=== PATIENT | female | born 1980 | race Hispanic/Latino ===

== ENCOUNTER 2024-03-02 11:41 | Outpatient (CLI) | payer BC, SELFPAY ==
--- NOTE | ~2024-03-02 | US_ITS ---
EXAMINATION: US OB /maternal detail DATE: 03/02/2024 12:28 INDICATION: anatomic survey. TECHNIQUE: Real-time ultrasound of the pelvis was performed. COMPARISON: None. FINDINGS: There is a single living fetus in vertex presentation. The placenta is anterior. The cervical length is 3.1 cm on transabdominal images, which is normal. heart rate is 140 beats per minute (bpm). The amniotic fluid volume is subjectively normal. The following biometric data were obtained: Biparietal diameter (BPD): 7.9 cm; head circumference (HC): 28.5 cm; abdominal circumference (AC): 26 .2 cm; femur length (FL): 5.4 cm. These measurements are discordant with low FL/BPD. Estimated weight is 1489 g +/- 223 g. As single measurements, these parameters are each equal to the following estimated gestational ages: BPD: 31 weeks 6 days. HC: 31 weeks 2 days. AC: 30 weeks 2 days. FL: 28 weeks 4 days. estimated gestational age based solely on measurements from this exam is 30 weeks 4 days +/- 2 weeks 1 days. The cerebral ventricles, cerebellum, cisterna magna, lip, and visualized portions of the spine are no rmal. The heart is normal. The diaphragm, stomach, kidneys, and bladder are normal. There are two umb ilical arteries to yield a 3-vessel cord. The cord insertion is normal. IMPRESSION: 1. Single living fetus in vertex presentation. 2. Estimated weight is 1489 g +/- 223 g with estimated date of delivery of 05/07/24 based on thi s ultrasound. 3. Discordant biometrics with low FL/BPD ratio. 4. Normal anatomic survey. Reviewed, dictated and finalized at location E. IMPRESSION: 1. Single living fetus in vertex presentation. 2. Estimated weight is 1489 g +/- 223 g with estimated date of delivery of 05/07/24 based on this ultrasound. 3. Discordant biometrics with low FL/BPD ratio. 4. Normal anatomic survey.
== END 2024-03-02 11:42 ==
LOC: MICIMG 11:42
PROVIDERS: PCP Student in an Organized Health Care Education/Training Program; Visit Provider Student in an Organized Health Care Education/Training Program
DX: N94.89 Other specified conditions associated with female genital organs and menstrual cycle (principal); Z34.93 Encounter for supervision of normal pregnancy, unspecified, third trimester; Z3A.30 30 weeks gestation of pregnancy
CPT/HCPCS: 76805

== ENCOUNTER 2024-03-15 11:23 | Outpatient (CLI) | payer BC, SELFPAY ==
[2024-03-15] VITALS (7 sets, daily range): BP systolic 127–145; BP diastolic 74–83; PULSE 106–139; O2SAT 98
[2024-03-15 12:02] LABS: Basophils Percent Auto 0.5 % (0.2-1.2); Eosinophils Percent Auto 0.7 % (0-4.4); Hematocrit 38.3 % (37.0-47.0); Immature Granulocyte Absolute 0.02 K/mm3 (0.00-0.031); Immature Granulocyte Percent A 0.3 % (0-0.5); Lymphocytes Absolute Auto 1.07 K/mm3 (0.9-3.2); Lymphocytes Percent Auto 18.3 % (18.3-44.2); Mean Corpuscular HGB Conc 33.9 g/dl (32-36); Mean Corpuscular Hemoglobin 31.8 pg (26-34); Mean Corpuscular Volume 93.6 fl (80-100); Mean Platelet Volume 10.3 fl (7.4-10.4); Monocytes Absolute Auto 0.4 K/mm3 (0.1-0.6); Neutrophils Absolute Auto 4.3 K/mm3 (1.3-6.7); Neutrophils Percent Auto 73.2 % (45.5-73.1); Platelet Count Result 251 k/mm3 (150-375); Red Blood Count 4.09 M/mm3 (4.2-5.4); Red Cell Distribution Width 13.4 % (11.5-14.5); White Blood Count 5.9 K/mm3 (4.5-10.0)
[2024-03-15 12:03] LABS: Appearance Urine Clear (Clear); Bilirubin Urine Negative (Negative); Blood Urine Negative (Negative); Color Urine Yellow (Yellow); Glucose Urine UA Negative (Negative); Ketones Urine 3+ mg/dL (Negative); Leukocyte Esterase Ur Negative LEU/UL (Negative); Nitrate Urine Negative (Negative); Protein Urine Negative (Negative); Specific Grav Ur 1.009 (1.001-1.035); Urobilinogen Urine 0.2 mg/dL (<2.0); pH Urine 7.5 (5.0-9.0)
[2024-03-15 12:11] LABS: Creatinine Urine 33.3 mg/dL; Total Protein Urine Random 14 mg/dL; Ur Ttl Prot Creatinine Ratio 0.42 mg/mg (0-0.20)
[2024-03-15 12:12] LABS: Add Urine Microscopic? YES
[2024-03-15 12:15] LABS: Alanine Aminotransferase 15 U/L (6-35); Albumin Level 4.1 g/dL (3.5-5.1); Alkaline Phosphatase 133 U/L (38-126); Anion Gap 10 mmol/L (4-12); Aspartate Amino Transferase 29 U/L (14-36); Bilirubin,Total 0.4 mg/dL (0.2-1.3); Blood Urea Nitrogen 4 mg/dL (7-17); Calcium 8.9 mg/dL (8.4-10.2); Carbon Dioxide 20 mmol/L (22-30); Chloride 107 mmol/L (98-107); Estimated Glomerular Filt Rate > 60; Glucose 82 mg/dL (65-110); Potassium 3.7 mmol/L (3.4-5.0); Sodium 137 mmol/L (137-145); Uric Acid 3.2 mg/dL (2.5-7.5)
[2024-03-15 12:55] LABS: HIV 1/2 Ab P24 Ag Result Negative (Negative)
[2024-03-15 13:27] LABS: Glucose 1 Hour PP 50gm Dose 179 mg/dL
[2024-03-15 20:36] LABS: Rapid Plasma Reagin Non-Reactive (NonReactive)
== END 2024-03-15 15:55 | disposition home or self-care (01) ==
LOC: ANHOBOP 11:31 → ANHOBPP 11:33
PROVIDERS: Visit Provider Obstetrics & Gynecology
DX: O13.9 Gestational [pregnancy-induced] hypertension without significant proteinuria, unspecified trimester (principal); Z3A.00 Weeks of gestation of pregnancy not specified
CPT/HCPCS: 36415; 59025; 80053; 81001; 82570; 82947; 84156; 84550; 85025; 86592; 86703; 99199; G0432

== ENCOUNTER 2024-03-20 17:46 | Observation (INO) | payer BC, SELFPAY ==
--- NOTE | ~2024-03-20 | US_ITS ---
LIMITED OBSTETRIC ULTRASOUND/BIOPHYSICAL PROFILE Ordering provider: Niurka Hull MD History: . Pre E, AMA; add ROMY please . Comparison: None. FINDINGS: MATERNAL CERVIX: Not visualized. cm which is normal (normal is equal to or greater than 3.0 cm). PRESENTATION: Vertex. Longitudinal lie. PLACENTAL LOCATION: Anterior No previa. HEART RATE: 145 bpm (normal is between 110 to 160 bpm). AMNIOTIC FLUID INDEX: 12.6 cm. 5th percentile 8.3 cm. 95th percentile 24.5 cm. Largest vertical pock et is 5.4 cm. SCORE: breathing movements: 2 movements: 2 tone: 2 Amniotic fluid volume: 2 Total: 8 IMPRESSION: Normal biophysical profile. Reviewed, dictated and finalized at location A. IMPRESSION: Normal biophysical profile.
[2024-03-20 17:09] LABS: Alanine Aminotransferase 13 U/L (6-35); Albumin Level 4.2 g/dL (3.5-5.1); Alkaline Phosphatase 147 U/L (38-126); Anion Gap 10 mmol/L (4-12); Aspartate Amino Transferase 21 U/L (14-36); Bilirubin,Total 0.6 mg/dL (0.2-1.3); Blood Urea Nitrogen 2 mg/dL (7-17); Calcium 9.1 mg/dL (8.4-10.2); Carbon Dioxide 19 mmol/L (22-30); Chloride 106 mmol/L (98-107); Estimated Glomerular Filt Rate > 60; Glucose 78 mg/dL (65-110); Potassium 3.6 mmol/L (3.4-5.0); Sodium 135 mmol/L (137-145)
[2024-03-20 17:13] LABS: Basophils Percent Auto 0.4 % (0.2-1.2); Eosinophils Absolute Auto 0.1 K/mm3 (0-0.3); Eosinophils Percent Auto 0.7 % (0-4.4); Hematocrit 39.2 % (37.0-47.0); Hemoglobin 13.2 g/dL (12.0-15.0); Immature Granulocyte Absolute 0.03 K/mm3 (0.00-0.031); Immature Granulocyte Percent A 0.4 % (0-0.5); Lymphocytes Absolute Auto 1.41 K/mm3 (0.9-3.2); Lymphocytes Percent Auto 20.3 % (18.3-44.2); Mean Corpuscular HGB Conc 33.7 g/dl (32-36); Mean Corpuscular Hemoglobin 31.9 pg (26-34); Mean Corpuscular Volume 94.7 fl (80-100); Mean Platelet Volume 10.3 fl (7.4-10.4); Monocytes Absolute Auto 0.5 K/mm3 (0.1-0.6); Monocytes Percent Auto 7.5 % (2.6-8.5); Neutrophils Absolute Auto 4.9 K/mm3 (1.3-6.7); Neutrophils Percent Auto 70.7 % (45.5-73.1); Platelet Count Result 258 k/mm3 (150-375); Red Blood Count 4.14 M/mm3 (4.2-5.4); Red Cell Distribution Width 13.2 % (11.5-14.5); White Blood Count 6.9 K/mm3 (4.5-10.0)
[2024-03-20] MEDS: TERBUTALINE SULFATE 1 MG/ML VIAL (17:15)
--- NOTE | 2024-03-20 17:48 | OBADM ---
This patient, Evelyn Casey, admitted to the OB room for observation. Patient/family oriented to hospital policies and general routines including ID bracelet, bed and alarms, visiting hours, pain management, procedures, bathroom and other care routines, personal items, smoking policy, room service/diet, and visiting hours. Patient/Family are encouraged to report perceived risks to care and to ask questions if they do not understand what they are told or what they should do.
[2024-03-20 17:57] VITALS: BP 128/81; PULSE 94
[2024-03-20 18:03] LABS: Appearance Urine Clear (Clear); Bacteria Urine None Seen /hpf; Bilirubin Urine Negative (Negative); Blood Urine Negative (Negative); Color Urine Yellow (Yellow); Glucose Urine UA Negative (Negative); Ketones Urine 2+ mg/dL (Negative); Leukocyte Esterase Ur Trace LEU/UL (Negative); Nitrate Urine Negative (Negative); Non Pathogenic Casts 0-2; Protein Urine Negative (Negative); RBC Urine 0-2 /hpf (0-2); Specific Grav Ur 1.005 (1.001-1.035); Squamous Epithelial Cell Urine None Seen /hpf (Few); Urobilinogen Urine 0.2 mg/dL (<2.0); WBC Urine 0-5 /hpf (0-3); pH Urine 6.5 (5.0-9.0)
[2024-03-20 18:05] LABS: Add Urine Microscopic? YES; Creatinine Urine 17.6 mg/dL; Total Protein Urine Random 17 mg/dL; Ur Ttl Prot Creatinine Ratio 0.97 mg/mg (0-0.20)
--- NOTE | 2024-03-21 07:56 | P.PNOB_ITS ---
OB - Triage/Final Diagnosis Visit Information Comments/Additional reasons for admission: I have assessed the risk for this patient, Evelyn Casey, and determined that she would benefit from observation care. Evaluation Laboratory results: Laboratory Tests 03/20/24 16:41 WBC 6.9 RBC 4.14 L Hgb 13.2 Hct 39.2 MCV 94.7 MCH 31.9 MCHC 33.7 RDW 13.2 Plt Count 258 MPV 10.3 Immature Gran % (Auto) 0.4 Neut % (Auto) 70.7 Lymph % (Auto) 20.3 [place] % (Auto) 7.5 Eos % (Auto) 0.7 Baso % (Auto) 0.4 Lymph # (Auto) 1.41 [place] # (Auto) 0.5 Eos # (Auto) 0.1 Baso # (Auto) 0.0 Abs Immat Gran (auto) 0.03 Absolute Neuts (auto) 4.9 Absolute Nucleated RBC 0.000 Nucleated RBC % 0.0 Sodium 135 L Potassium 3.6 Chloride 106 Carbon Dioxide 19 L Anion Gap 10 BUN 2 L Creatinine 0.30 L Estim Creat Clear Calc Not Reportable Estimated GFR > 60 Glucose 78 Uric Acid 3.0 Calcium 9.1 Total Bilirubin 0.6 AST 21 ALT 13 Alkaline Phosphatase 147 H Total Protein 8.0 Albumin 4.2 Urine Color Yellow Urine Appearance Clear Urine pH 6.5 Ur Specific [place] 1.005 Urine Protein Negative Urine Glucose (UA) Negative Urine Ketones 2+ H Ur Blood (Man) Negative Urine Nitrate Negative Urine Bilirubin Negative Urine Urobilinogen 0.2 Leukocyte Esterase Rfl Trace H Urine RBC 0-2 Urine WBC 0-5 Ur Squamous Epith Cells None seen Urine Bacteria None seen Urine Casts 0-2 U Random Total Protein 17 Urine Creatinine 17.6 Protein/Creat Ratio 2 0.97 H Vital signs: Vital Signs - 24 hr 03/20/24 17:57 Pulse Rate 94 Blood Pressure [Left Arm] 128/81 Final Diagnosis (1) contractions: Code(s): O47.00 - False labor before 37 completed weeks of gestation, unspecified trimester Status: Acute (2) Pre-eclampsia: Code(s): O14.90 - Unspecified pre-eclampsia, unspecified trimester Status: Acute
== END 2024-03-20 18:16 ==
LOC: ANHLDR 03-21 07:23
PROVIDERS: Admitting Provider Obstetrics & Gynecology; Visit Provider Obstetrics & Gynecology
DX: O14.93 Unspecified pre-eclampsia, third trimester (principal); O47.03 False labor before 37 completed weeks of gestation, third trimester; Z3A.33 33 weeks gestation of pregnancy
CPT/HCPCS: 36415; 59025; 76815; 76819; 80053; 81001; 82570; 84156; 84550; 85025; 96372; G0378; G0379; J3105

== ENCOUNTER 2024-04-13 14:24 | Outpatient (RCR) | payer BC, SELFPAY ==
[2024-03-23 15:17] VITALS: BP 131/81; PULSE 124
[2024-03-27 16:53] VITALS: BP 134/84; PULSE 109
[2024-03-30 14:44] LABS: Basophils Percent Auto 0.4 % (0.2-1.2); Eosinophils Absolute Auto 0.1 K/mm3 (0-0.3); Eosinophils Percent Auto 1.5 % (0-4.4); Hematocrit 40.3 % (37.0-47.0); Hemoglobin 13.6 g/dL (12.0-15.0); Immature Granulocyte Absolute 0.03 K/mm3 (0.00-0.031); Immature Granulocyte Percent A 0.6 % (0-0.5); Lymphocytes Absolute Auto 1.25 K/mm3 (0.9-3.2); Lymphocytes Percent Auto 23.6 % (18.3-44.2); Mean Corpuscular HGB Conc 33.7 g/dl (32-36); Mean Corpuscular Hemoglobin 31.9 pg (26-34); Mean Corpuscular Volume 94.6 fl (80-100); Mean Platelet Volume 10.5 fl (7.4-10.4); Monocytes Absolute Auto 0.5 K/mm3 (0.1-0.6); Neutrophils Absolute Auto 3.4 K/mm3 (1.3-6.7); Neutrophils Percent Auto 63.9 % (45.5-73.1); Platelet Count Result 254 k/mm3 (150-375); Red Blood Count 4.26 M/mm3 (4.2-5.4); White Blood Count 5.3 K/mm3 (4.5-10.0)
[2024-03-30 15:00] LABS: Alanine Aminotransferase 17 U/L (6-35); Alkaline Phosphatase 160 U/L (38-126); Anion Gap 11 mmol/L (4-12); Aspartate Amino Transferase 22 U/L (14-36); Bilirubin,Total 0.3 mg/dL (0.2-1.3); Blood Urea Nitrogen 5 mg/dL (7-17); Calcium 8.7 mg/dL (8.4-10.2); Carbon Dioxide 19 mmol/L (22-30); Chloride 102 mmol/L (98-107); Estimated Glomerular Filt Rate > 60; Glucose 81 mg/dL (65-110); Sodium 132 mmol/L (137-145); Uric Acid 3.2 mg/dL (2.5-7.5)
[2024-03-30 15:12] VITALS: BP 127/84; PULSE 107
[2024-04-06 14:48] VITALS: BP 129/85; PULSE 101
[2024-04-06 15:01] LABS: Basophils Percent Auto 0.3 % (0.2-1.2); Eosinophils Percent Auto 0.7 % (0-4.4); Hematocrit 38.9 % (37.0-47.0); Hemoglobin 13.1 g/dL (12.0-15.0); Immature Granulocyte Absolute 0.03 K/mm3 (0.00-0.031); Immature Granulocyte Percent A 0.5 % (0-0.5); Lymphocytes Absolute Auto 1.08 K/mm3 (0.9-3.2); Lymphocytes Percent Auto 18.1 % (18.3-44.2); Mean Corpuscular HGB Conc 33.7 g/dl (32-36); Mean Corpuscular Hemoglobin 32.1 pg (26-34); Mean Corpuscular Volume 95.3 fl (80-100); Mean Platelet Volume 10.6 fl (7.4-10.4); Monocytes Absolute Auto 0.4 K/mm3 (0.1-0.6); Monocytes Percent Auto 7.2 % (2.6-8.5); Neutrophils Absolute Auto 4.4 K/mm3 (1.3-6.7); Neutrophils Percent Auto 73.2 % (45.5-73.1); Platelet Count Result 224 k/mm3 (150-375); Red Blood Count 4.08 M/mm3 (4.2-5.4); Red Cell Distribution Width 13.2 % (11.5-14.5)
[2024-04-06 15:13] LABS: Alanine Aminotransferase 14 U/L (6-35); Albumin Level 3.9 g/dL (3.5-5.1); Alkaline Phosphatase 165 U/L (38-126); Anion Gap 9 mmol/L (4-12); Aspartate Amino Transferase 20 U/L (14-36); Bilirubin,Total 0.4 mg/dL (0.2-1.3); Blood Urea Nitrogen 9 mg/dL (7-17); Calcium 8.6 mg/dL (8.4-10.2); Carbon Dioxide 22 mmol/L (22-30); Chloride 103 mmol/L (98-107); Estimated Glomerular Filt Rate > 60; Glucose 83 mg/dL (65-110); Potassium 3.6 mmol/L (3.4-5.0); Sodium 134 mmol/L (137-145)
[2024-04-10 16:52] VITALS: BP 141/79; PULSE 96
--- NOTE | ~2024-04-13 | US_ITS ---
EXAMINATION: US OB BPP wo non-stress DATE: 03/27/2024 16:42 CDT INDICATION: Preeclampsia TECHNIQUE: Real-time transabdominal obstetric ultrasound. FINDINGS: No prior studies for comparison. There is a single living fetus in vertex presentation. The placenta is maternal right without placen ta previa. cardiac activity and movement is noted with a heart rate of 145 beats per minute. Biophysical profile: breathin of 2 movement: 2 of 2 tone: 2 of 2 Amniotic flud pocket: 2 of 2 Total score: 8 of 8 IMPRESSION: 1. Single living intrauterine in vertex presentation. 2: Total biophysical profile score of 8/8. Reviewed, dictated and finalized at location B.
--- NOTE | ~2024-04-13 | US_ITS ---
EXAMINATION: US OB BPP wo non-stress DATE: 04/10/2024 16:51 INDICATION: Gestational hypertension. Third trimester. TECHNIQUE: Real-time pelvic ultrasound was performed. COMPARISON: Ultrasound 03/27/2024 FINDINGS: There is a single living fetus in vertex presentation. The placenta is right anterior. heart r ate is 136 beats per minute (bpm). Biophysical profile performed by the technologist: breathing (30 sec sustained breathing in 30 minutes): 2 out of 2 movement (3 gross body movements in 30 minutes): 2 out of 2 tone (one episode of qximuiw-jqpxgnfjz-mwgvuwo limb movement): 2 out of 2 Amniotic fluid pocket (2 cm): 2 out of 2 Total score: 8 out of 8 IMPRESSION: 1. Single living fetus in vertex presentation. 2. Biophysical profile 8 out of 8. Reviewed, dictated and finalized at location A.
[2024-04-13 14:45] LABS: Basophils Percent Auto 0.5 % (0.2-1.2); Eosinophils Absolute Auto 0.1 K/mm3 (0-0.3); Eosinophils Percent Auto 1.3 % (0-4.4); Hematocrit 37.8 % (37.0-47.0); Hemoglobin 12.9 g/dL (12.0-15.0); Immature Granulocyte Absolute 0.03 K/mm3 (0.00-0.031); Immature Granulocyte Percent A 0.5 % (0-0.5); Lymphocytes Absolute Auto 1.23 K/mm3 (0.9-3.2); Lymphocytes Percent Auto 19.2 % (18.3-44.2); Mean Corpuscular HGB Conc 34.1 g/dl (32-36); Mean Corpuscular Volume 93.8 fl (80-100); Mean Platelet Volume 10.2 fl (7.4-10.4); Monocytes Absolute Auto 0.5 K/mm3 (0.1-0.6); Monocytes Percent Auto 7.8 % (2.6-8.5); Neutrophils Absolute Auto 4.5 K/mm3 (1.3-6.7); Neutrophils Percent Auto 70.7 % (45.5-73.1); Platelet Count Result 225 k/mm3 (150-375); Red Blood Count 4.03 M/mm3 (4.2-5.4); Red Cell Distribution Width 13.2 % (11.5-14.5); White Blood Count 6.4 K/mm3 (4.5-10.0)
[2024-04-13 14:58] LABS: Alanine Aminotransferase 12 U/L (6-35); Albumin Level 3.6 g/dL (3.5-5.1); Alkaline Phosphatase 182 U/L (38-126); Anion Gap 9 mmol/L (4-12); Aspartate Amino Transferase 19 U/L (14-36); Bilirubin,Total 0.3 mg/dL (0.2-1.3); Blood Urea Nitrogen 6 mg/dL (7-17); Calcium 8.9 mg/dL (8.4-10.2); Carbon Dioxide 21 mmol/L (22-30); Chloride 104 mmol/L (98-107); Estimated Glomerular Filt Rate > 60; Glucose 81 mg/dL (65-110); Potassium 3.7 mmol/L (3.4-5.0); Sodium 134 mmol/L (137-145); Uric Acid 3.2 mg/dL (2.5-7.5)
[2024-04-13 15:13] VITALS: BP 129/85; PULSE 100
== END 2024-04-29 10:53 | disposition home or self-care (01) ==
LOC: ANHOBOP 14:24
PROVIDERS: Visit Provider Obstetrics & Gynecology
DX: O14.93 Unspecified pre-eclampsia, third trimester (principal); Z3A.33 33 weeks gestation of pregnancy; Z3A.34 34 weeks gestation of pregnancy; Z3A.35 35 weeks gestation of pregnancy; Z3A.36 36 weeks gestation of pregnancy
CPT/HCPCS: 36415; 59025; 76819; 80053; 84550; 85025

== ENCOUNTER 2024-04-16 15:56 | Inpatient (IN) | payer BC, SELFPAY ==
[2024-04-16] VITALS (18 sets, daily range): BP systolic 119–151; BP diastolic 68–93; PULSE 88–134; TEMP 37.1; BMI 25.4
[2024-04-16 16:34] LABS: Basophils Percent Auto 0.2 % (0.2-1.2); Eosinophils Percent Auto 0.6 % (0-4.4); Hematocrit 39.2 % (37.0-47.0); Hemoglobin 13.6 g/dL (12.0-15.0); Immature Granulocyte Absolute 0.02 K/mm3 (0.00-0.031); Immature Granulocyte Percent A 0.3 % (0-0.5); Lymphocytes Absolute Auto 1.06 K/mm3 (0.9-3.2); Lymphocytes Percent Auto 16.2 % (18.3-44.2); Mean Corpuscular HGB Conc 34.7 g/dl (32-36); Mean Corpuscular Hemoglobin 32.2 pg (26-34); Mean Corpuscular Volume 92.9 fl (80-100); Mean Platelet Volume 10.4 fl (7.4-10.4); Monocytes Absolute Auto 0.5 K/mm3 (0.1-0.6); Monocytes Percent Auto 7.2 % (2.6-8.5); Neutrophils Percent Auto 75.5 % (45.5-73.1); Platelet Count Result 240 k/mm3 (150-375); Red Blood Count 4.22 M/mm3 (4.2-5.4); White Blood Count 6.6 K/mm3 (4.5-10.0)
[2024-04-16 16:48] LABS: Alanine Aminotransferase 12 U/L (6-35); Albumin Level 3.8 g/dL (3.5-5.1); Alkaline Phosphatase 207 U/L (38-126); Anion Gap 9 mmol/L (4-12); Aspartate Amino Transferase 21 U/L (14-36); Bilirubin,Total 0.4 mg/dL (0.2-1.3); Blood Urea Nitrogen 6 mg/dL (7-17); Calcium 9.1 mg/dL (8.4-10.2); Carbon Dioxide 20 mmol/L (22-30); Chloride 106 mmol/L (98-107); Estimated Glomerular Filt Rate > 60; Glucose 110 mg/dL (65-110); Potassium 3.5 mmol/L (3.4-5.0); Sodium 135 mmol/L (137-145); Uric Acid 3.7 mg/dL (2.5-7.5)
--- NOTE | 2024-04-16 16:50 | LDADM ---
This patient, Evelyn Casey, was admitted to Labor/Delivery/Recovery 107 on 04/16/24 at 15:56. Plans for labor, pain management and were discussed with patient. Patient/family oriented to hospital policies and general routines including ID bracelet, bed and alarms, visiting hours, pain management, procedures, bathroom and other care routines, personal items, smoking policy, room service/diet and guest tray routines, security routines, and visiting hours. Patient/Family are encouraged to report perceived risks to care and to ask questions if they do not understand what they are told or what they should do. See OBIX for further documentation.
[2024-04-16] MEDS: DINOPROSTONE 10 MG VAG INSERT VAGINAL (17:02)
[2024-04-16 17:04] LABS: Rapid Plasma Reagin Non-Reactive (NonReactive)
[2024-04-16 17:29] LABS: HIV 1/2 Ab P24 Ag Result Negative (Negative)
--- NOTE | 2024-04-16 18:11 | WPDANESEPP ---
Anes - Eval Pre Procedure Procedure: labor epidural Date/Time: 04/16/24 18:11 Surgeon: naun Preop Diagnosis: pain during labor Pre Op Diagnosis: IOL Patient Data Age: 43 Gender: F Height: 1.52 m Weight: 59 kg Last Vital Signs Pulse 104 H 04/16/24 18:01 BP 124/79 04/16/24 18:01 O2 Del Method Room Air 04/16/24 16:48 Allergies Allergy/AdvReac Type Severity Reaction Status Date / Time No Known Allergies Allergy Verified 04/02/24 15:12 Home Medications Medication Instructions Recorded Confirmed Type vits no.126-ferrous fum 1 tablet PO DAILY 02/15/24 04/16/24 History 28 mg iron-folic acid 800 mcg tablet (Classic ) Laboratory Tests 04/16/24 16:13 WBC 6.6 K/mm3 (4.5-10.0) RBC 4.22 M/mm3 (4.2-5.4) Hgb 13.6 g/dL (12.0-15.0) Hct 39.2 % (37.0-47.0) MCV 92.9 fl (80-100) MCH 32.2 pg (26-34) MCHC 34.7 g/dl (32-36) RDW 13.0 % (11.5-14.5) Plt Count 240 k/mm3 (150-375) MPV 10.4 fl (7.4-10.4) Immature Gran % (Auto) 0.3 % (0-0.5) Neut % (Auto) 75.5 H % (45.5-73.1) Lymph % (Auto) 16.2 L % (18.3-44.2) [place] % (Auto) 7.2 % (2.6-8.5) Eos % (Auto) 0.6 % (0-4.4) Baso % (Auto) 0.2 % (0.2-1.2) Lymph # (Auto) 1.06 K/mm3 (0.9-3.2) [place] # (Auto) 0.5 K/mm3 (0.1-0.6) Eos # (Auto) 0.0 K/mm3 (0-0.3) Baso # (Auto) 0.0 K/mm3 (0.0-0.1) Abs Immat Gran (auto) 0.02 K/mm3 (0.00-0.031) Absolute Neuts (auto) 5.0 K/mm3 (1.3-6.7) Absolute Nucleated RBC 0.000 K/mm3 (0.0-0.012) Nucleated RBC % 0.0 % (0.0-0.2) Sodium 135 L mmol/L (137-145) Potassium 3.5 mmol/L (3.4-5.0) Chloride 106 mmol/L (98-107) Carbon Dioxide 20 L mmol/L (22-30) Anion Gap 9 mmol/L (4-12) BUN 6 L mg/dL (7-17) Creatinine 0.30 L mg/dL (0.7-1.0) Estim Creat Clear Calc Not Reportable Estimated GFR > 60 (59 - ) Glucose 110 mg/dL (65-110) Uric Acid 3.7 mg/dL (2.5-7.5) Calcium 9.1 mg/dL (8.4-10.2) Total Bilirubin 0.4 mg/dL (0.2-1.3) AST 21 U/L (14-36) ALT 12 U/L (6-35) Alkaline Phosphatase 207 H U/L (38-126) Total Protein 7.0 g/dL (6.3-8.2) Albumin 3.8 g/dL (3.5-5.1) RPR Non-reactive (NonReactive) HIV 1&2 Ab/P24 Ag 4thGn Negative (Negative) Blood Type O Positive Antibody Screen Negative Patient hx anesthesia problems: none Family hx anesthesia problems: none Results Review: All pre-operative results and documents have been reviewed as part of the pre-operative evaluation. [facility] Past Medical History Medical History (Updated 04/16/24 @ 18:11 by Trena Lay CRNA) Abnormal glucose tolerance in HTN (hypertension) IUP (intrauterine ), incidental Overweight Suppression of menses Family History Family History Father Hypertension Acute myocardial infarction Other Heart disease Social History Social History Smoking status: Never smoker Alcohol intake: former Substance use: never Do You Feel Safe in your Home?: Yes Lack of Transportation: No Lack of Food: Never True Current Housing: I Have Housing Concerned About Future Housing: No Difficulty Paying Gas/Electric Bills: No Difficulty Paying for Meds: No Currently Unemployed: No Education: Bachelor's Degree Difficulty w/ Childcare or Family Care: No Living arrangements: with family Occupation/Education: unemployed Gender identity (if verbalized by the patient): Female Spiritual care concerns: No Exam Day of Procedure 04/16/24 18:11
[2024-04-16] MEDS: ACETAMINOPHEN 500 MG TABLET 1000 MG PO (22:33)
[2024-04-16] MEDS: LACTATED RINGERS 1,000 ML 125 ML IV CONT (22:49)
[2024-04-17] VITALS (121 sets, daily range): BP systolic 110–171; BP diastolic 48–125; PULSE 80–161; RESP 12–16; TEMP 36.6–38.3; O2SAT 94–100
--- NOTE | 2024-04-17 06:54 | PM.IMHP ---
H&P: HPI History of Present Illness Date/Time: 04/17/24 07:10 Chief Complaint: Induction for pre-eclampsia without severe features Narrative: Evelyn is a 43yo @ 37.1wks who was admitted to L&D overnight for IOL due to pre-eclampsia w/o severe features, now s/p cervidil. She has been undergoing twice weekly testing with weekly BPP and weekly labs since her diagnosis. She also did see MFM. She established PNC very late at 28wks. She denies any SHAH, vision changes, CP, SOB. She feels good movement. No VB or LOF. Her is complicated by: - Late to PNC @ 28wks - AMA-- had MFM US; anatomy incomplete with them, no genetic testing performed - Pre-eclampsia w/o SF (P/C 0.9) --- 2x/wk for ANT, delivery @ 37wks. - Elevated 1 hour; 3 hour normal - Pt desires bilateral salpingectomy if needed. Review of Systems Constitutional: Constitutional: Denies chills, Denies fever(s) and Denies headache(s) Eyes: Eyes: Denies change in vision ENT: Denies headache(s) Cardiovascular: Cardiovascular: Denies chest pain and Denies dyspnea Respiratory: Respiratory: Denies dyspnea Genitourinary: Genitourinary: Denies abnormal vaginal bleeding and Denies vaginal discharge Neurologic: Denies headache(s) Psychiatric: Psychiatric: Denies anxiety and Denies depression [facility] Past Medical History Medical History (Updated 04/16/24 @ 20:59 by Niurka Hull MD) Abnormal glucose tolerance in HTN (hypertension) IUP (intrauterine ), incidental Overweight Suppression of menses Family History Family History Father Hypertension Acute myocardial infarction Other Heart disease Social History Social History Smoking status: Never smoker Alcohol intake: former Substance use: never Do You Feel Safe in your Home?: Yes Lack of Transportation: No Lack of Food: Never True Current Housing: I Have Housing Concerned About Future Housing: No Difficulty Paying Gas/Electric Bills: No Difficulty Paying for Meds: No Currently Unemployed: No Education: Bachelor's Degree Difficulty w/ Childcare or Family Care: No Living arrangements: with family Occupation/Education: unemployed Gender identity (if verbalized by the patient): Female Spiritual care concerns: No Meds Home Medications and Allergies Home Medications Medication Instructions Recorded Confirmed Type vits no.126-ferrous fum 1 tablet PO DAILY 02/15/24 04/16/24 History 28 mg iron-folic acid 800 mcg tablet (Classic ) Allergies Allergy/AdvReac Type Severity Reaction Status Date / Time No Known Allergies Allergy Verified 04/02/24 15:12 Vital Signs Vital Signs - 24 hr 04/16/24 16:19 04/16/24 16:31 04/16/24 16:46 Pulse Rate 134 H 130 H 115 H Blood Pressure 142/91 H 131/87 144/88 H Oxygen Delivery 04/16/24 17:01 04/16/24 17:16 04/16/24 17:31 Pulse Rate 118 H 114 H 106 H Blood Pressure 137/93 H 120/78 124/80 Oxygen Delivery 04/16/24 17:46 04/16/24 18:01 04/16/24 18:16 Pulse Rate 109 H 104 H 108 H Blood Pressure 129/81 124/79 123/77 Oxygen Delivery 04/16/24 18:31 04/16/24 19:01 04/16/24 20:01 Pulse Rate 93 91 94 Blood Pressure 119/77 127/68 126/76 Oxygen Delivery 04/16/24 20:31 04/16/24 16:48 Pulse Rate 105 H Blood Pressure 144/93 H Oxygen Delivery Room Air Exam Const: General: cooperative, healthy appearing, comfortable and no acute distress Nutritional Appearance: obese Orientation/consciousness: patient oriented x3 Resp: Effort & Inspection: normal respiratory effort Cardio: Rate: regular rate GI: GI Palp: No abdominal tenderness : Other: FHT's: 130's/ mod dmitriy/ + accels/ no decels - cat 1 TOCO: ctxs q2-4min Cervix: 4/50/-2 Membranes: AROM, clear Presentation: cephalic Skin: Genera
[2024-04-17] MEDS: OXYTOCIN 30 UNITS/NS 500 ML 30 UNITS/500 ML BAG 6 UNITS IV CONT (07:00)
[2024-04-17] MEDS: LACTATED RINGERS 1,000 ML 125 ML IV CONT ×2 (07:30→11:46)
[2024-04-17] MEDS: miSOPROStol 200 MCG TABLET 800 MCG RECTAL (13:10)
--- NOTE | 2024-04-17 13:33 | PM.OBPRVD ---
OB - Vaginal Delivery Note Procedure Delivery date: 04/17/24 Events: Preeclampsia w/o severe features and Other (AMA, late care) Intrapartal Events: Chorioamnionitis Induction method: Per Cervidil Protocol Delivery augmentation: Rupture of Membranes and Pitocin Delivery monitor: External FHT and External Uterine Route of delivery: Episiotomy description: None Laceration Description: Periurethral (left) and Perineal - 2nd Degree Delivery repair: vicryl Specimen: Yes (placenta) Quantitative Blood Loss (ml): 500 Anesthesia type: Epidural Disposition: Floor Complications: No immediate complications [place] Baby Date of : 04/17/24 Time of : 13:07 Gestational Age by Date: 37 (.1) Infant gender: Female Weight (pounds): 5 Weight (ounces): 11 presentation: vertex position: Right Occiput Anterior Placenta delivery description: Expressed Cord Vessel Description: 3 Vessels and Delayed Cord Clamping score one minute: 9 score five minutes: 9 Narrative: Evelyn rapidly progressed to complete dilation with strong desire to push. Prior to pushing she was found to have a temperature of 100.4? and the baby was also found to be tachycardiac. She pushed for approximately 15 minutes with good maternal effort delivered the head over intact perineum. No nuchal cord was noted. She easily delivered the infant's shoulders and body without complication. The was immediately placed skin to skin and had spontaneous cry. Delayed cord clamping was performed. The umbilical cord was then doubly clamped and cut. A segment of cord was collected for cord gases. Brisk bleeding was then noted but cord blood was collected for typing. With Pitocin running and gentle downward traction on the cord, the placenta delivered without complication. Bimanual massage revealed uterine atony and Cytotec 800 mcg was placed rectally. The uterus did become firm with bimanual massage. She was examined and found to have a left periurethral laceration as well as a second-degree perineal laceration. The left periurethral laceration was repaired using 3-0 Vicryl in the normal fashion and good hemostasis was noted. The second-degree perineal laceration was repaired in normal fashion using 2-0 Vicryl and good hemostasis was noted bimanual massage was once again performed and a small amount of clots were removed from the uterus but good tone was then noted with minimal bleeding. Sponge, lap, instrument, and needle counts were correct at the end of the procedure. Mom and baby were left bonding in the birthing suite in stable condition.
[2024-04-17] MEDS: AMPICILLIN 2 GM/NS 100 ML 2 GM/100 ML BAG IVPB ×2 (13:43→20:03)
[2024-04-17] MEDS: OXYTOCIN 30 UNITS/NS 500 ML 30 UNITS/500 ML BAG 125 UNITS IV CONT (13:47)
[2024-04-17] MEDS: IBUPROFEN 600 MG TABLET PO (15:22)
[2024-04-17] MEDS: WITCH HAZEL 40 PADS 1 PAD TOPICAL (15:24)
[2024-04-17] MEDS: BENZOCAINE 20% AER SPR (*SP) 56 GM CAN 1 SPRAY TOPICAL (15:24)
[2024-04-17] MEDS: ACETAMINOPHEN 325 MG TABLET 650 MG PO (17:54)
--- NOTE | 2024-04-17 17:59 | OBPPTRN ---
Patient transferred to post room #285 via (wheelchair ). Support person present. Oriented to unit, room, information board, rooming in, admission packet and security measures. Patient verbalizes understanding.
--- NOTE | 2024-04-17 18:25 | PC.NURSE ---
4405. Met with patient to assess and discuss needs related to feeding. Mother states it is her intention to exclusively breastfeed if she is able, but states she is happy to do what is best for baby. Encouraged mother to breastfeed every 2-3 hours, watching for early feeding cues which we reviewed together.. If infant is sleepy, unwrap and place baby skin to skin. Discussed signs that infant is effectively , i.e. sufficient voids and stools, jaundice within normal limits, <10% weight loss from . Mother educated on milk production, supply and demand, and expectations for in the immediate period. Encouraged feeding on demand and feeding durations of 15 minutes or greater. Discussed breast/nipple care with good hand hygiene, signs of a correct latch, listening for infant swallows and documenting feedings on the feeding sheet. Mother instructed to call for assistance if infant will not feed every 3 hours, if there is discomfort with , or if mother has any other questions or concerns. resources provided including the Mom and Baby Guide. Mother verbalized understanding. Updated patient?s primary RN with education provided.
--- NOTE | 2024-04-17 20:26 | PM.OBDSVD ---
DS: Admitting Diagnosis Discharge Date 04/19/24 Admitting Diagnosis Pre-eclampsia w/o severe features DS: Discharge Diagnosis Discharge Diagnosis (1) Normal vaginal delivery of first : Code(s): O80 - Encounter for full-term uncomplicated delivery Status: Acute (2) Chorioamnionitis: Qualifiers: Fetus number: single or unspecified fetus Trimester: third trimester Qualified Code(s): O41.1230 - Chorioamnionitis, third trimester, not applicable or unspecified Code(s): O41.1290 - Chorioamnionitis, unspecified trimester, not applicable or unspecified Status: Acute (3) Pre-eclampsia: Qualifiers: Trimester: third trimester Qualified Code(s): O14.93 - Unspecified pre-eclampsia, third trimester Code(s): O14.90 - Unspecified pre-eclampsia, unspecified trimester Status: Acute OB - DS: Summary OB Procedures : NST, PIH Mgmt and Ultrasound OB Procedures Intrapartum: Spontaneous Vag Delivery OB Procedures: : Antibiotics Peripartum Data Infant Delivery Method: Natural Vaginal Laceration Description: Periurethral (left) and Perineal - 2nd Degree Episiotomy description: None complications: none 1: Gender: Female Disposition of : home Status at Discharge Functional status at discharge: independent ambulation Overall status at discharge: patient is back to baseline Time Spent with Patient Time attestation: Total time spent providing and/or coordinating discharge services: Exam Const: General: cooperative, healthy appearing, comfortable and no acute distress Orientation/consciousness: patient oriented x3 Resp: Effort & Inspection: normal respiratory effort Auscultation: clear to auscultation bilaterally Cardio: Rate: regular rate GI: Inspection: non-distended GI Palp: No abdominal tenderness and Yes Soft to palpation Auscultation: normal bowel sounds : Other: fundus firm Skin: General skin exam: normal color Neuro: General: patient oriented x3 Extrem: General: normal to inspection Psych: Appearance: grossly normal Affect: normal affect Attitude: cooperative DS: Data Data Completed and Pending Pending studies at discharge: Pending at discharge 04/17/24 14:37 Surgical [PTH] Routine Discharge Plan Discharge Attending physician on discharge: Niurka Hull Discharging Clinician: Niurka Hull Anticipated Discharge Date/Time: 04/19/24 09:00 Patient Disposition: Home, Self-Care Activity: may shower and pelvic rest Diet: regular Discharge Instructions: Education: Mom and Baby Guide Given to: Mother Follow-Up: Call your delivering provider's office for an appointment to be seen in: 1 Week Mom and baby should come to the [facility] for the follow-up appointment. Appointment Date/Time: April 20, 2024 at 11:00 am What to expect at your follow-up visit: Blood Pressure Check Physical Assessment Call [phone] if you are unable to keep your appointment time. BREAST CARE: * Wear a snug supportive bra. * For engorgement discomfort: Breast Feeding/Pumping: * Apply warm moist washcloths * Express milk as needed to relieve engorgement * Wear loose clothing Bottle Feeding: * May apply ice packs * For sore nipples: * Identify correct latch-on/Breast pump flange * Apply warm moist washcloths before and after nursing * Air dry nipples after nursing * May apply Lansinoh cream to nipples EPISIOTOMY/PERINEAL CARE: * Until bleeding stops, use your perlita bottle after urinating * Change your pad frequently throughout the day * You may take sitz baths several times a day (fill your bathtub with warm water and soak for 20 minutes.) Do NOT bathe in the water * No tub baths until seen by your physician - You may shower ACTIVITY: * Rest as much a
[2024-04-18 00:20] VITALS: BP 89/51; PULSE 87; RESP 12; TEMP 36.5; O2SAT 97
[2024-04-18] MEDS: AMPICILLIN 2 GM/NS 100 ML 2 GM/100 ML BAG IVPB ×2 (00:36→06:52)
[2024-04-18] MEDS: SODIUM CHLORIDE 0.9% IV 500 ML 999 ML (01:06)
[2024-04-18 03:40] VITALS: BP 99/64
[2024-04-18] MEDS: IBUPROFEN 600 MG TABLET PO ×2 (05:34→21:38)
[2024-04-18] MEDS: ACETAMINOPHEN 325 MG TABLET 650 MG PO ×2 (05:34→21:37)
[2024-04-18] MEDS: DOCUSATE SODIUM 100 MG CAPSULE PO ×2 (05:35→16:25)
[2024-04-18 05:40] LABS: Basophils Absolute Auto 0.1 K/mm3 (0.0-0.1); Basophils Percent Auto 0.4 % (0.2-1.2); Eosinophils Absolute Auto 0.1 K/mm3 (0-0.3); Eosinophils Percent Auto 0.9 % (0-4.4); Hematocrit 29.1 % (37.0-47.0); Hemoglobin 9.9 g/dL (12.0-15.0); Immature Granulocyte Absolute 0.06 K/mm3 (0.00-0.031); Immature Granulocyte Percent A 0.4 % (0-0.5); Lymphocytes Absolute Auto 1.98 K/mm3 (0.9-3.2); Lymphocytes Percent Auto 14.2 % (18.3-44.2); Mean Corpuscular Hemoglobin 32.5 pg (26-34); Mean Corpuscular Volume 95.4 fl (80-100); Mean Platelet Volume 10.6 fl (7.4-10.4); Monocytes Absolute Auto 1.2 K/mm3 (0.1-0.6); Monocytes Percent Auto 8.6 % (2.6-8.5); Neutrophils Absolute Auto 10.5 K/mm3 (1.3-6.7); Neutrophils Percent Auto 75.5 % (45.5-73.1); Platelet Count Result 184 k/mm3 (150-375); Red Blood Count 3.05 M/mm3 (4.2-5.4); Red Cell Distribution Width 13.2 % (11.5-14.5); White Blood Count 13.9 K/mm3 (4.5-10.0)
[2024-04-18 05:52] LABS: Alanine Aminotransferase 11 U/L (6-35); Albumin Level 2.3 g/dL (3.5-5.1); Alkaline Phosphatase 126 U/L (38-126); Anion Gap 7 mmol/L (4-12); Aspartate Amino Transferase 25 U/L (14-36); Bilirubin,Total 0.2 mg/dL (0.2-1.3); Blood Urea Nitrogen 4 mg/dL (7-17); Calcium 8.1 mg/dL (8.4-10.2); Carbon Dioxide 20 mmol/L (22-30); Chloride 107 mmol/L (98-107); Estimated CRCL calculation 138 ml/min; Estimated Glomerular Filt Rate > 60; Glucose 77 mg/dL (65-110); Potassium 3.4 mmol/L (3.4-5.0); Sodium 134 mmol/L (137-145)
[2024-04-18] MEDS: POLYSACCHARIDE IRON COMPLEX 150 MG CAPSULE PO ×2 (06:55→16:25)
[2024-04-18] MEDS: MULTIVIT/MIN/PREN/FOL AC/IRON TABLET 1 TAB PO (06:55)
[2024-04-18 07:35] VITALS: BP 97/59; PULSE 87; RESP 18; TEMP 36.3; O2SAT 97
--- NOTE | 2024-04-18 08:12 | P.PNOB_ITS ---
OB - PN: Subj Subjective Date/time seen: 04/18/24 07:22 Narrative: PPD#1 Evelyn reports doing well today. 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 Her pain is controlled. She is tolerating regular diet, voiding, passing gas, and ambulating without issues. She is breast feeding. She denies any fevers overnight. No SHAH, vision changes, CP, SOB OB - PN: Obj Data Labs 04/18/24 04:11 04/18/24 04:11 OB - PN A/P Assessment and Plan (1) Normal vaginal delivery of first : Code(s): O80 - Encounter for full-term uncomplicated delivery Status: Acute (2) Pre-eclampsia: Qualifiers: Trimester: third trimester Qualified Code(s): O14.93 - Unspecified pre- eclampsia, third trimester Code(s): O14.90 - Unspecified pre-eclampsia, unspecified trimester Status: Acute (3) Chorioamnionitis: Qualifiers: Fetus number: single or unspecified fetus Trimester: third trimester Qualified Code(s): O41.1230 - Chorioamnionitis, third trimester, not applicable or unspecified Code(s): O41.1290 - Chorioamnionitis, unspecified trimester, not applicable or unspecified Status: Acute Plan day: 1 Plan: routine care Comments: - S/p gentamicin 5mg/kg IV x1; ampicillin 2g IV q6h x4 doses-- afebrile - PO pain meds - Regular diet - Ambulation and hydration encouraged - Continue putting baby to breast q2-3hr Time Spent With Patient Time: Total time spent is greater than 50% in coordination of care (as documented) at patient's floor/unit and/or counseling patient: Review of Systems Constitutional: Constitutional: Denies chills, Denies fever(s) and Denies headache(s) Eyes: Eyes: Denies change in vision ENT: Denies dizziness and Denies headache(s) Cardiovascular: Cardiovascular: Denies chest pain, Denies palpitations and Denies dyspnea Respiratory: Respiratory: Denies cough and Denies dyspnea Gastrointestinal: Gastrointestinal: Denies nausea and Denies vomiting Neurologic: Denies dizziness and Denies headache(s) Endocrine: Endocrine: Denies palpitations Exam Const: General: cooperative, healthy appearing, comfortable and no acute distress Orientation/consciousness: patient oriented x3 Resp: Effort & Inspection: normal respiratory effort Auscultation: clear to auscultation bilaterally Cardio: Rate: regular rate GI: Inspection: non-distended GI Palp: No abdominal tenderness and Yes Soft to palpation Auscultation: normal bowel sounds : Other: fundus firm Skin: General skin exam: normal color Neuro: General: patient oriented x3 Extrem: General: normal to inspection Psych: Appearance: grossly normal Affect: normal affect Attitude: cooperative
--- NOTE | 2024-04-18 09:45 | PC.NURSE ---
Consulted with patient to assess needs related to . Discussed with mother her successes, concerns and any questions she has. We reviewed working with the , supporting breast, protecting her nipples with an optimal deep latch, good positioning, and good hand washing. Encouraged understanding the benefits of skin to skin, responding to feeding cues, frequencies of feeding 8-12 times in 24 hours (approximately 2-3 hours), duration of feedings, milk production, intake/output feeding sheet and signs of adequate intake encouraging swallowing at the breast. Reviewed positioning and alignment, supporting breast, off-centered (asymmetrical latch) and leading with the chin with big, open, wide gape. latched optimally to the left breast in football position, baby breastfed from 0908 until 0941 per mom. Education given to the mother of how to visualize the suckling (with good rocking jaw motion) swallows (dropping of the lower jaw) and how to listen for drinking at the breast (the ka sound). The was able to maintain latch without discomfort to mother. Nipple care reviewed with optimal latch, good positioning and using clean hands when touching her breast. Resources used to facilitate learning were used from the visual handouts and mom and baby guide. Mother voiced understanding of the education shared, to call for assistance if the does not latch or if there is discomfort with . Reported to the Primary RN.
[2024-04-18 12:21] VITALS: BP 102/58; PULSE 94; RESP 16; TEMP 36.4; O2SAT 99
--- NOTE | 2024-04-18 14:32 | WPDANLDPN2 ---
Anes-Prog Note L&D Date/Time: 04/18/24 14:32 Comfortable throughout: labor and delivery Neuraxial method: epidural Epidural/Spinal procedure site: clean & non-tender Neuro status: Neuro function grossly intact. Cardiovascular status: normal Respiratory status: normal Airway patency: baseline Mental status: baseline Post-Op hydration status: normal Vital Signs: Last Vital Signs Temp 36.4 C L 04/18/24 12:21 Pulse 94 04/18/24 12:21 Resp 16 04/18/24 12:21 BP 102/58 L 04/18/24 12:21 Pulse Ox 99 04/18/24 12:21 O2 Del Method Room Air 04/17/24 16:00 Pain score (VAS): 4/10 I/O: Intake & Output 04/17/24 04/18/24 04/18/24 23:59 07:59 15:59 Intake Total 240 100 Output Total 500 Balance -260 100 Post-procedural complaints: none Patient feedback: Patient satisfied with anesthetic care.
[2024-04-18 19:01] VITALS: BP 123/78; PULSE 98; RESP 16; TEMP 37.2; O2SAT 100
[2024-04-18] MEDS: DIBUCAINE 1% OINTMENT 30 GM TUBE 1 APPLIC TOPICAL (21:40)
[2024-04-19 00:20] VITALS: BP 131/82
[2024-04-19 03:33] VITALS: BP 135/65
[2024-04-19] MEDS: WITCH HAZEL 40 PADS 1 PAD TOPICAL (08:57)
[2024-04-19] MEDS: IBUPROFEN 600 MG TABLET PO (08:57)
[2024-04-19] MEDS: POLYSACCHARIDE IRON COMPLEX 150 MG CAPSULE PO (08:57)
[2024-04-19] MEDS: DOCUSATE SODIUM 100 MG CAPSULE PO (08:57)
[2024-04-19] MEDS: MULTIVIT/MIN/PREN/FOL AC/IRON TABLET 1 TAB PO (08:57)
[2024-04-19 09:05] VITALS: BP 134/83; PULSE 86; RESP 16; TEMP 36.6; O2SAT 100
--- NOTE | 2024-04-19 11:10 | PC.NURSE ---
Consulted with patient to assess needs related to . Discussed with mother her successes, concerns and any questions she has. Encouraged understanding the benefits of skin to skin, responding to feeding cues, frequencies of feeding 8-12 times in 24 hours (approximately 2-3 hours), duration of feedings, milk production, intake/output feeding sheet and signs of adequate intake encouraging swallowing at the breast. was latched to the [left] breast in [cradle] position. The was [able] to maintain latch, but was very sleepy and only sucked with stimulation. Encouraged mother to undress baby to keep her awake, breastfeed for 15 minutes each feeding before giving supplement, and pumping at every feeding if baby doesn't breastfeed well. Mother has a pump for home use. Reiterated that her milk needs to be removed so her body knows to make more milk. Mother has the mom baby guide for reference. Mother voiced understanding of the education shared, to call for assistance if the does not latch or if there is discomfort with . Reported to the Primary RN.
[2024-04-19 12:47] VITALS: BP 128/82; PULSE 93; RESP 16; TEMP 37.3; O2SAT 100
--- NOTE | 2024-04-19 13:50 | PC.NURSE ---
Patient viewed the discharge video Mother & Baby Care, The First Two Weeks . Patient was given the opportunity and encouraged to ask questions. Patient verbalized understanding of information shared and has been given the mother/baby guide for home reference.
[2024-04-20 11:34] VITALS: BP 140/90; PULSE 87; RESP 18; TEMP 36.7; O2SAT 99
== END 2024-04-19 14:05 | disposition home or self-care (01) | DRG 806 ==
LOC: ANHLDR 15:59 → ANHOB2 04-17 15:57
PROVIDERS: Admitting Provider Obstetrics & Gynecology; Visit Provider Obstetrics & Gynecology
DX: O14.04 Mild to moderate pre-eclampsia, complicating childbirth (principal); O75.2 Pyrexia during labor, not elsewhere classified; Z37.0 Single live birth; O70.1 Second degree perineal laceration during delivery; O71.82 Other specified trauma to perineum and vulva; Z3A.37 37 weeks gestation of pregnancy
CPT/HCPCS: 36415; 80053; 84550; 85025; 86592; 86703; 86850; 86900; 86901; 88307; A9270; G0432; J0290; J1580; J2590; J7040; J7120